=== PATIENT | female | born 1975 | race Hispanic/Latino ===

== ENCOUNTER 2025-06-30 07:56 | Emergency (ER) | payer SELFPAY | END 2025-06-30 10:03 | disposition home or self-care (01) | LOC: CSHERS 07:56 | DX: S29.011A Strain of muscle and tendon of front wall of thorax, initial encounter (principal); X58.XXXA Exposure to other specified factors, initial encounter | CPT/HCPCS: 93005; 99283 ==

== ENCOUNTER 2025-08-08 16:12 | Emergency (ER) | payer SELFPAY ==
[2025-08-08] MEDS ORDERED: Ketorolac Tromethamine 30 MG (1 mL) VIAL ONE (18:02)
== END 2025-08-08 18:20 | disposition home or self-care (01) ==
LOC: CSHERS 16:12
DX: B02.9 Zoster without complications (principal)
CPT/HCPCS: 96372; 99282; J1885